=== PATIENT | male | born 1955 | race Caucasian/White ===

== ENCOUNTER 2022-06-11 10:35 | Emergency (ER) | payer OTHER, MEDICARE ==
[2022-06-11 11:00] VITALS: BP 148/101; PULSE 111; RESP 20; TEMP 98.5; BMI 28.7
[2022-06-11] MEDS ORDERED: IBUPROFEN 400 MG TABLET (FP) PO ONE ×2 (13:01→13:04)
== END 2022-06-11 13:10 | disposition home or self-care (01) ==
LOC: FER 10:35
DX: N20.0 Calculus of kidney (principal)
CPT/HCPCS: 74176-TC; 81003; 87086; 99284-25